=== PATIENT | female | born 1950 | race Two or more races ===

== ENCOUNTER 2025-01-22 14:16 | Inpatient (IN) | payer OTHER, MEDICARE, MEDICAID ==
[~2025-01-22] VITALS: Ht 154.9 cm; Wt 96.1 kg
--- NOTE | 2025-01-22 14:44 | ED.PDOC ---
History of Present Illness(SKN HPI Comments 74 y/o F, BIBA, with PMHx of DM presents to the ED for CC of wound check. EMS reports, patient is coming from home where she c/o left leg pain and pain to her lower lumbar region d/t a sacral wound. Patient reports associated symptoms of fatigue and abdominal pain. No other symptoms or modifying factors are present at this time. Chief Complaint: Wound Check Time Seen by MD: 14:00 History of Present Illness: Nurses Notes, Clinical Biochemical Geneticist Notes, Medications, Allergies Allergies: Coded Allergies: Morphine (Verified Allergy, Unknown, 01/22/25) Information Source: Patient, Emergency Med Personnel Mode of Arrival: EMS Severity: Moderate Timing: Days Duration: Since onset Prehospital treatment: None Location: Back Mechanism: Spontaneous Onset Object: None Condition of Object: None Retained Foreign Body: No Wound Type: Other (Sacral decubitus ulcer) History of: None Associated Signs and Symptoms: None Past Medical History PAST MEDICAL HISTORY: DM Surgical History: Denies all surgeries DESIGN LEAD History: Denies all DESIGN LEAD Hx Family History Family History: Unknown Social History Smoker: Non-Smoker Alcohol: Denies ETOH Use Drugs: Denies Drug Use Lives In: Home Constitutional: reports: fatigue; denies: chills, diaphoresis, fever, malaise, sweats, weakness, others EENTM: denies: blurred vision, double vision, ear bleeding, ear discharge, ear drainage, ear pain, ear ringing, eye pain, eye redness, hearing loss, mouth pa in, mouth swelling, nasal discharge, nose bleeding, nose congestion, nose pain, photophobia, tearing, throat pain, throat swelling, voice changes, others Respiratory: denies: cough, hemoptysis, orthopnea, SOB at rest, shortness of breath, SOB with excertion, stridor, wheezing, others Cardiovascular: denies: chest pain, dizzy spells, diaphoresis, Dyspnea on exertion, edema, irregular heart beat, left arm pain, lightheadedness, palpitations, PND, syncope, others Gastrointestinal: reports: abdominal pain; denies: abdomen distended, blood streaked bowels, constipated, diarrhea, dysphagia, difficulty swallowing, hematemesis, melena, nausea, poor appetite, poor fluid intake, rectal bleeding, rectal pain, vomiting, others Genitourinary: denies: abnormal vagina bleeding, burning, dyspareunia, dysuria, flank pain, frequency, hematuria, incontinence, pain, , vagina discharge, urgency, others Neurological: denies: dizziness, fainting, headache, left sided numbness, left sided weakness, numbness, paresthesia, pre-existing deficit, right sided numbness, right sided weakness, seizure, speech problems, tingling, tremors, weakness, others Musculoskeletal: reports: others (Pain to tailbone); denies: back pain, gout, joint pain, joint swelling, muscle pain, muscle stiffness, neck pain Integumetry: denies: bruises, change in color, change in hair/nails, dryness, laceration, lesions, lumps, rash, wounds, others Allergic/Immunocompromised: denies: Difficulty Healing, Frequent Infections, Hives, Itching, others Hematologic/Lymphatic: denies: anemia, blood clots, easy bleeding, easy bruising, swollen glands, others Endocrine: denies: excessive hunger, excessive sweating, excessive thirst, excessive urination, flushing, intolerance to cold, intolerance to heat, unexplained weight gain, unexplained weight loss, others Psychiatric: denies: anxiety, bipolar disorder, depression, hopeless, panic disorder, schizophrenia, sleepless, suicidal, others All Other Systems: Reviewed and Negative Physical Exam General Appearance: No Apparent Distress, Normal, Other (Right lower leg am putation, left foot amputation) HEENT: Normal ENT Inspection, Pharynx Normal Neck: Full Range of Motion, Non-Tender, Normal, Normal Inspection Respiratory: Chest Non-Tender, Lungs Clear, No Accessory Muscle Use, No Respiratory Distress, Normal Breath Sounds Cardiovascular: No Edema, No Murmur, No Gallop, Normal Peripheral Pulses, Regular Rate/Rhythm Breast Exam: Deferred Gastrointestinal: No Organomegaly, Non Tender, No Pulsatile Mass, Normal Bowel Sounds, Soft Genitalia: Deferred Pelvic: Deferred Rectal: Deferred Extremities: No calf tenderness, Normal capillary refill, Normal inspection, Normal range of motion, Non-tender, No pedal edema Musculoskeletal : Apperance: Normal Neurologic: Alert, toddler teacher II-XII nml as Tested, No Motor Deficits, Normal Affect, Normal Mood, No Sensory Deficits Cerebellar Function: Normal Reflexes: Normal Skin: Wounds (sacral decubitus ulcer) Lymphatic: No Adenopathy Was a procedure done? Was a procedure done?: No Differential Diagnosis (INTG) Differential Diagnosis: Cellulitis, Contact Dermatitis, Other (sacral wound, sacral pressure ulcers, incontinence associated dermatitis) X-Ray, Labs, Meds, VS Vital Signs Date Time Temp Pulse Resp B/P (MAP) Pulse Ox O2 Delivery O2 Flow Rate FiO2 01/22/25 15:08 106 20 125/109 01/22/25 14:20 97.7 97 16 123/41 96 97.7 Lab Test 01/22/25 15:30 01/22/25 14:45 Range/Units POC Glucose 177 H 70-106 mg/dl White Blood Count 24.8 H 4.4-10.8 10^3/uL Red Blood Count 2.76 L 4.0-5.20 10^6/uL Hemoglobin 6.9 *L 12.2-16.2 g/dL Hematocrit 23.7 L 36.0-46.0 % Mean Corpuscular Volume 85.9 80.0-100.0 fL Mean Corpuscular Hemoglobin 24.9 L 28.0-32.0 pg Mean Corpuscular Hemoglobin Concent 29.0 L 32.0-36.0 g/dL Red Cell Distribution Width 28.5 H 11.8-14.3 % Platelet Count 471 H 140-450 10^3/uL Mean Platelet Volume 7.1 6.9-10.8 fL Neutrophils (%) (Auto) 86.0 H 37.0-80.0 % Lymphocytes (%) (Auto) 7.5 L 10.0-50.0 % Monocytes (%) (Auto) 5.1 0.0-12.0 % Eosinophils (%) (Auto) 0.4 0.0-7.0 % Basophils (%) (Auto) 1.0 0.0-2.0 % Neutrophils # (Auto) 21.3 H 1.6-8.6 10 ^3/uL Lymphocytes # (Auto) 1.9 0.4-5.4 10 ^3/uL Monocytes # (Auto) 1.3 0-1.3 10 ^3/uL Eosinophils # (Auto) 0.1 0-0.8 10 ^3/uL Basophils # (Auto) 0.2 0-0.2 10 ^3/uL Nucleated Red Blood Cells 0.0 % Platelet Estimate Pending Sodium Level 139 136-145 mmol/L Potassium Level 5.2 H 3.5-5.1 mmol/L Chloride Level 109 H 98-107 mmol/L Carbon Dioxide Level 22 20-31 mmol/L Anion Gap 8 5-15 Blood Urea Nitrogen 19 9-23 mg/dL Creatinine 0.83 0.550-1.02 mg/dL Glomerular Filtration Rate Calc 73 >90 mL/min BUN/Creatinine Ratio 22.9 H 10.0-20.0 Serum Glucose 209 H 74-106 mg/dL Lactic Acid Level 2.5 *H 0.4-2.0 mmol/L Calcium Level 8.0 L 8.7-10.4 mg/dL Troponin I High Sensitivity 16 </=34 ng/L B-Type Natriuretic Peptide 134.96 0-100 pg/mL Current Medications Medications (Trade) Dose Ordered Sig/Xu Route Start Time Stop Time Status Last Admin Hydromorphone HCl (Dilaudid Injection) 1 mg ONCE ONCE IV 01/22/25 14:30 01/22/25 14:31 DC 01/22/25 15:08 Ondansetron HCl (Zofran) 4 mg ONCE ONCE IV 01/22/25 14:30 01/22/25 14:31 DC 01/22/25 15:08 [place] [address] Ph: [phone] DIAGNOSTIC IMAGING Diagnostic Imaging Report : [id number] Signed PATIENT: LAURA RASHID ACCT: [id number] UNIT: [id number] : 1950 LOC: ER ROOM / BED: / AGE / SEX: 74 / F ADM STATUS: REG ER SERVICE 1424 ORDERING PHYSICIAN: MARIN BURCH MD PROCEDURE(s): CXRP - CHEST PORTABLE REASON: pain ORDER NUMBER(s): [id number], ACCESSION NUMBER(s): [id number] CHEST RADIOGRAPH Indication: pain Technique: XY CHEST PORTABLE Comparison: None FINDINGS: The cardiac silhouette is unremarkable. The lungs demonstrate no pulmonary airspace consolidation. Bilateral atelectasis/scarring The pulmonary vasculature is unremarkable. There is no pleural effusion. There is no pneumothorax. Aortic atherosclerotic disease. Old posterior left 6th rib fracture. IMPRESSION: As above ATED BY: JUNIE JOE MD DICTATED DATE/TIME: 01/22/251455 SIGNED BY: JUNIE JOE MD SIGNED DATE/TIME: 01/22/251455 CC: Time of 1ST Reevaluation: 14:30 Reevaluation 1ST: Unchanged Patient Education/Counseling: Diagnosis, Treatment Family Education/Counseling: No Family Present SEPSIS Sepsis Screen Date sepsis recognized/suspect: Jan 22, 2025 Time Sepsis recognized/suspect: 1419 Recent Procedure: No On Antibiotic Therapy: No Respiratory Rate >20: No Heart Rate >90: Yes Temp<36 C (96.8 F) or >38.3 C: No SBP <90 or MAP <65 mmHG: No New Acute Mental Status Change: No Is the patient on CPAP, BIPAP,: No Physician Orders Complete Blood Count (01/22/25 14:24) Urinalysis (01/22/25 14:24) Chest Portable (01/22/25 14:24) Blood Culture (01/22/25 14:24) Troponin-I Hs (01/22/25 15:24) Troponin-I Hs (01/22/25 17:24) Rbc Morphology (01/22/25 14:45) Packedcell-Noactive Bleeding (01/22/25 15:30) Type And Screen (01/22/25 15:30) Vancomycin (01/22/25 16:00) Vital Signs Date Time Temp Pulse Resp B/P (MAP) Pulse Ox O2 Delivery O2 Flow Rate FiO2 01/22/25 15:08 106 20 125/109 01/22/25 14:20 97.7 97 16 123/41 96 97.7 Laboratory Tests Test 01/22/25 14:45 Lactic Acid Level 2.5 mmol/L (0.4-2.0) *H White Blood Count 24.8 10^3/uL (4.4-10.8) H Medications Medications Dose Ordered Sig/Xu Route Start Time Stop Time Status Last Admin Dose Admin Hydromorphone HCl 1 mg ONCE ONCE IV 01/22/25 14:30 01/22/25 14:31 DC 01/22/25 15:08 Ondansetron HCl 4 mg ONCE ONCE IV 01/22/25 14:30 01/22/25 14:31 DC 01/22/25 15:08 Departure 1 Departure Time of Disposition: 15:49 (Patient with symptomatic anemia and cellulitis. We will transfuse patient admit patient for antibiotics further workup) Impression: Primary Impression: Symptomatic anemia Additional Impressions: Cellulitis Qualified Codes: L03.90 - Cellulitis, unspecified Generalized weakness Disposition: 09 ADMITTED INPATIENT Admit to: Med Surg Condition: Serious Critical Care Note Critical Care Time?: Yes Critical care comment: Symptomatic Anemia Authorized and Performed by: Marin Burch MD Total critical care time: Approximately 38 minutes Due to a high probability of clinically significant, life threatening deterioration, the patient required my highest level of preparedness to intervene emergently and I personally spent this critical care time directly and personally managing the patient. This critical care time included obtaining a history; examining the patient; pulse oximetry; ordering and review of studies; arranging urgent treatment with development of a management plan; evaluation of patient's response to treatment; frequent reassessment; and, discussions with other providers. This critical care time was performed to assess and manage the high probability of imminent, life-threatening deterioration that could result in multi-organ failure. It was exclusive of separately billable procedures and treating other patients and teaching time. Please see my other sections and the rest of the note for further information on patient assessment and treatment. Stability Stability form required: No Heart Score Heart Score: Heart Score Response (Comments) Value History N/A 0 EKG N/A 0 Age N/A 0 Risk Factors N/A 0 Troponin N/A 0 Total 0 I personally scribed for MARIN BURCH MD ([email or web address]) on 01/22/25 at 14:44. Electronically submitted by Genna Rubio ([email or web address]). I personally scribed for MARIN BURCH MD ([email or web address]) on 01/22/25 at 14:48. Electronically submitted by Genna Rubio ([email or web address]). I personally scribed for MARIN BURCH MD ([email or web address]) on 01/22/25 at 15:21. Electronically submitted by Genna Rubio ([email or web address]). MARIN BURCH MD Jan 22, 2025 14:44
[2025-01-22 14:56] LABS: Nucleated Red Blood Cells % 0.0 %
--- NOTE | 2025-01-22 14:56 | DVH ---
CHEST RADIOGRAPH Indication: pain Technique: XY CHEST PORTABLE Comparison: None FINDINGS: The cardiac silhouette is unremarkable. The lungs demonstrate no pulmonary airspace consolidation. Bi lateral atelectasis/scarring The pulmonary vasculature is unremarkable. There is no pleural effusion. There is no pneumothorax. Aortic atherosclerotic disease. Old posterior left 6th rib fracture. IMPRESSION: As above
[2025-01-22 14:58] LABS: Hematocrit 23.7 % (36.0-46.0); Mean Corpuscular Hemoglobin 24.9 pg (28.0-32.0); Mean Corpuscular Volume 85.9 fL (80.0-100.0)
[2025-01-22 15:03] LABS: Sodium 139 mmol/L (136-145)
[2025-01-22 15:04] LABS: Anion Gap 8 (5-15); Carbon Dioxide 22 mmol/L (20-31)
[2025-01-22 15:07] LABS: Hemoglobin 6.9 g/dL (12.2-16.2)
[2025-01-22] MEDS: ONDANSETRON HCL 4 MG/2 ML VIAL IV ONE (15:08)
[2025-01-22] MEDS: HYDROmorphone HCL 2 MG/ML VL/or syr IV ONE (15:08)
[2025-01-22 15:09] LABS: BUN/Creatinine Ratio 22.9 (10.0-20.0); Blood Urea Nitrogen 19 mg/dL (9-23)
[2025-01-22 15:16] LABS: Calcium 8.0 mg/dL (8.7-10.4); Chloride 109 mmol/L (98-107); Glucose 209 mg/dL (74-106); Potassium 5.2 mmol/L (3.5-5.1)
[2025-01-22 15:44] LABS: Lactic Acid w/Reflex 2.5 mmol/L (0.4-2.0)
[2025-01-22 16:23] VITALS: PULSE 100; RESP 17; O2SAT 99
[2025-01-22 16:30] LABS: Anisocytosis Moderate
[2025-01-22] MEDS: SODIUM CHLORIDE 0.9% 1,000 ML IV ONE ×2 (17:24→18:38)
[2025-01-22] MEDS: VANCOMYCIN 1GM/250ML KIT 250 ML IV ONE (17:24)
[2025-01-22] MEDS: CALCIUM GLUC 1,000mg/50ml-NS 50 ML IV SCH (17:24)
[2025-01-22] MEDS ORDERED: VANCOMYCIN PER PHARMACY 0 MG IV SCH (18:00)
[2025-01-22] MEDS ORDERED: DEXTROSE (50%) 50ML SYRG IV PRN (18:00)
[2025-01-22] MEDS ORDERED: ONDANSETRON HCL 4 MG/2 ML VIAL IV PRN (18:00)
--- NOTE | 2025-01-22 18:06 | DVHHP2 ---
History of Present Illness Reason for Visit: Multiple wounds History of Present Illness 74-year-old female presents for evaluation of multiple wounds. Patient currently on hospice was seen by the nurse and advised to present for evaluation of sacral decubitus ulcer and left lower extremity wounds. Patient is bed ridden. Past Medical History Hypertension, diabetes mellitus,? Dementia Past Surgical History Unknown Family History Noncontributory Smoke: No ALCOHOL: none Drugs: None Review of Systems Review of Systems Review of systems are limited due to the patient's altered mental status. Allergies: Coded Allergies: Morphine (Verified Allergy, Unknown, 01/22/25) Exam Vital Signs Vital Signs Date Time Temp Pulse Resp B/P (MAP) Pulse Ox O2 Delivery O2 Flow Rate FiO2 01/22/25 16:32 98 Nasal Cannula* 2 28 01/22/25 16:23 100 17 01/22/25 16:00 97/37 (57) 01/22/25 15:47 98.0 98.0 Exam Gen: 74-year-old female in mild distress, morbidly obese Skin: Warm, dry, normal color and texture, sacral decubitus ulcer HEENT: Normocephalic atraumatic, mucous membranes moist and pink. Neck: Cervical and supraclavicular nodes normal without enlargement, trachea is midline, thyroid gland is normal without masses. Pulmonary: Clear to auscultation and percussion bilaterally. Cardiac: Regular rate and rhythm. No murmur Abdomen: Soft, nontender, nondistended, bowel sounds present all 4 quadrants, no guarding, no rigidity, no organomegaly. Extremities: No cyanosis, clubbing, left lower extremity with multiple wounds Neuro: Cranial nerves II through XII grossly intact, normal affect and speech, no focal motor deficits. Labs/Xrays ORDERING PHYSICIAN: MARIN HOPKINS MD PROCEDURE(s): CXRP - CHEST PORTABLE REASON: pain ORDER NUMBER(s): [id number], ACCESSION NUMBER(s): [id number] CHEST RADIOGRAPH Indication: pain Technique: XY CHEST PORTABLE Comparison: None FINDINGS: The cardiac silhouette is unremarkable. The lungs demonstrate no pulmonary airspace consolidation. Bilateral atelectasis/scarring The pulmonary vasculature is unremarkable. There is no pleural effusion. There is no pneumothorax. Aortic atherosclerotic disease. Old posterior left 6th rib fracture. IMPRESSION: As above Labs Test 01/22/25 17:21 01/22/25 15:30 01/22/25 14:45 Range/Units Lactic Acid Level 1.5 0.4-2.0 mmol/L Troponin I High Sensitivity 18 </=34 ng/L POC Glucose 177 H 70-106 mg/dl White Blood Count 24.8 H 4.4-10.8 10^3/uL Red Blood Count 2.76 L 4.0-5.20 10^6/uL Hemoglobin 6.9 *L 12.2-16.2 g/dL Hematocrit 23.7 L 36.0-46.0 % Mean Corpuscular Volume 85.9 80.0-100.0 fL Mean Corpuscular Hemoglobin 24.9 L 28.0-32.0 pg Mean Corpuscular Hemoglobin Concent 29.0 L 32.0-36.0 g/dL Red Cell Distribution Width 28.5 H 11.8-14.3 % Platelet Count 471 H 140-450 10^3/uL Mean Platelet Volume 7.1 6.9-10.8 fL Neutrophils (%) (Auto) 86.0 H 37.0-80.0 % Lymphocytes (%) (Auto) 7.5 L 10.0-50.0 % Monocytes (%) (Auto) 5.1 0.0-12.0 % Eosinophils (%) (Auto) 0.4 0.0-7.0 % Basophils (%) (Auto) 1.0 0.0-2.0 % Neutrophils # (Auto) 21.3 H 1.6-8.6 10 ^3/uL Lymphocytes # (Auto) 1.9 0.4-5.4 10 ^3/uL Monocytes # (Auto) 1.3 0-1.3 10 ^3/uL Eosinophils # (Auto) 0.1 0-0.8 10 ^3/uL Basophils # (Auto) 0.2 0-0.2 10 ^3/uL Nucleated Red Blood Cells 0.0 % Platelet Estimate Increased Hypochromasia (manual) Moderate Anisocytosis (manual) Moderate Bobby Cells Few Sodium Level 139 136-145 mmol/L Potassium Level 5.2 H 3.5-5.1 mmol/L Chloride Level 109 H 98-107 mmol/L Carbon Dioxide Level 22 20-31 mmol/L Anion Gap 8 5-15 Blood Urea Nitrogen 19 9-23 mg/dL Creatinine 0.83 0.550-1.02 mg/dL Glomerular Filtration Rate Calc 73 >90 mL/min BUN/Creatinine Ratio 22.9 H 10.0-20.0 Serum Glucose 209 H 74-106 mg/dL Calcium Level 8.0 L 8.7-10.4 mg/dL B-Type Natriuretic Peptide 134.96 0-100 pg/mL SEPSIS Sepsis Screen Date sepsis recognized/suspect: Jan 22, 2025 Time Sepsis recognized/suspect: 1628 Recent Procedure: No On Antibiotic Therapy: No Respiratory Rate >20: No Heart Rate >90: No Temp<36 C (96.8 F) or >38.3 C: No SBP <90 or MAP <65 mmHG: No New Acute Mental Status Change: No Is the patient on CPAP, BIPAP,: No Physician Orders Urinalysis (01/22/25 14:24) Chest Portable (01/22/25 14:24) Blood Culture (01/22/25 14:24) Type And Screen (01/22/25 15:30) Ct Ab Pel With Iv Con Only (01/22/25 17:19) Sodium Chloride 0.9% (01/22/25 17:30) Vital Signs Date Time Temp Pulse Resp B/P (MAP) Pulse Ox O2 Delivery O2 Flow Rate FiO2 01/22/25 16:32 98 Nasal Cannula* 2 01/22/25 16:23 100 17 99 Nasal Cannula* 2 01/22/25 16:00 100 19 97/37 (57) 99 01/22/25 15:47 98.0 104 19 125/93 (104) 99 98.0 01/22/25 15:38 100 16 97/37 01/22/25 15:08 106 20 125/109 01/22/25 14:20 97.7 97 16 123/41 96 97.7 Laboratory Tests Test 01/22/25 14:45 01/22/25 17:21 Lactic Acid Level 2.5 mmol/L (0.4-2.0) *H 1.5 mmol/L (0.4-2.0) White Blood Count 24.8 10^3/uL (4.4-10.8) H Medications Medications Dose Ordered Sig/Xu Route Start Time Stop Time Status Last Admin Dose Admin Calcium Gluconate/ Sodium Chloride 50 ml @ 100 mls/hr Q30M IV 01/22/25 16:00 01/22/25 16:59 DC 01/22/25 17:25 100 MLS/HR Hydromorphone HCl 1 mg ONCE ONCE IV 01/22/25 14:30 01/22/25 14:31 DC 01/22/25 15:08 1 MG Ondansetron HCl 4 mg ONCE ONCE IV 01/22/25 14:30 01/22/25 14:31 DC 01/22/25 15:08 4 MG Sodium Chloride 1,000 ml @ 1,000 mls/hr Q1H ONCE IV 01/22/25 16:00 01/22/25 16:59 DC 01/22/25 17:24 1,000 MLS/HR Vancomycin HCl 250 ml @ 250 mls/hr ONCE ONCE IV 01/22/25 16:00 01/22/25 16:59 DC 01/22/25 17:24 250 MLS/HR Assessment/Plan Assessment/Plan Assessment Infected sacral decubitus ulcer Possible metabolic encephalopathy Diabetes mellitus Leukocytosis Early sepsis Plan Admit the patient to [facility] to the hospitalist Wound consult Wound culture pending CT abdomen and pelvis pending Cefepime/vancomycin Resume home medications Continue treatment per orders. Plan discussed with: Patient Date of Service: Jan 22, 2025 Billing Provider: FERMIN LIU Common Visit Codes: [id number] INP/OBS CARE (HIGH) FERMIN LIU Jan 22, 2025 18:06
[2025-01-22] MEDS: FERROUS SULFATE 325mg EC TAB PO SCH (18:38)
[2025-01-22 19:08] LABS: Iron 15.0 ug/dL (50-170); Total Iron Binding Capacity 110.0 ug/dL (250-425)
--- NOTE | 2025-01-22 21:32 | DVH ---
EXAM: CT CT AB PEL WITH IV CON ONLY HISTORY: adbominal pain, c/f osteo in the pelvis TECHNIQUE: Volumetric multidetector CT images of the abdomen and pelvis were obtained after the admin istration of intravenous contrast. All CT scans at this facility use dose modulation, iterative recon struction, and/or weight based dosing when appropriate to reduce radiation dose to as low as reasonab ly achievable. COMPARISON: None FINDINGS: [LOWER CHEST]: Small bilateral pleural effusions with atelectasis in bilateral lung bases. Coronary a rtery calcifications. [LIVER]: Hepatomegaly [GALLBLADDER AND BILIARY TREE]: Surgically absent. [SPLEEN]: Hypoattenuating oval-shaped lesion measuring 2.8 cm in the left medial spleen. [PANCREAS]: Fatty atrophy, which may be seen in the setting of underlying metabolic derangement such as diabetes. [ADRENAL GLANDS]: Unremarkable [KIDNEYS]: No hydronephrosis. No nephroureterolithiasis. No suspicious focal lesion. [BLADDER]: Dominguez catheter in place. [REPRODUCTIVE ORGANS]: Calcified fibroid [BOWEL/MESENTERY]: Stomach is normal. Jsec-[id number]-wpvgwyiy stool burden. Normal appendix. [ASCITES]: Absent [LYMPHADENOPATHY]: No pathologically enlarged lymph nodes by CT size criteria [VASCULATURE]: No aneurysmal dilatation. [ABDOMINAL WALL]: [id number] diffuse anasarca. Prior midline incision. [MUSCULOSKELETAL]: Multifocal degenerative change of the visualized spine. 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 No visualized pathologic fracture. Status post prior distal resection of the lower sacrum/coccyx. Superior endplate height loss with Schmorl's node and near central vertebral plana of L4 and L5. No visualized retropulsion. Diffusely decreased bone mineral density. Severe degenerative change hips. Large sacral decubitus ulcer overlying the pos terior aspect of the residual sacrum without abnormal osseous erosion or periosteal edema. Correlate with clinical exam to exclude osteomyelitis. IMPRESSION: 1. Large sacral decubitus ulcer overlying the posterior aspect of the residual sacrum without abnorma l osseous erosion or periosteal edema. Correlate with clinical exam to exclude osteomyelitis. 2. 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 No visualized pa thologic fracture. 3. Mild anasarca with trace bilateral pleural effusions. Correlate for volume overload.
[2025-01-22] MEDS: IOHEXOL 300 MG/ML 100ML BOTTLE IJ ONE (22:03)
[2025-01-22] MEDS: GABAPENTIN 300 MG CAP PO SCH (22:16)
[2025-01-22] MEDS: CEFEPIME 1GM/50ML 50 ML IV ONE (22:16)
[2025-01-22] MEDS: ALBUMIN 5% 250 ML IV ONE (22:16)
[2025-01-22] MEDS: ACCU-CHEK COMFORT CURVE STRIP VI SCH (22:17)
[2025-01-22] MEDS: HYDROcodone-ACET 5/325MG TAB PO PRN (22:17)
[2025-01-22] MEDS: InsuLIN REG 1unit/0.01ml Soln (100units/ml) SC SCH (22:45)
[2025-01-22 23:35] VITALS: BP 106/31; PULSE 85; RESP 18; TEMP 98.3
[2025-01-23] VITALS (14 sets, daily range): BP systolic 99–151; BP diastolic 29–74; PULSE 72–96; RESP 12–18; TEMP 97–98.6; O2SAT 96–100
[2025-01-23 05:04] LABS: Anion Gap 7 (5-15); Carbon Dioxide 23 mmol/L (20-31); Potassium 4.4 mmol/L (3.5-5.1); Sodium 141 mmol/L (136-145)
[2025-01-23 05:05] LABS: Nucleated Red Blood Cells % 0.0 %
[2025-01-23 05:06] LABS: Hematocrit 21.8 % (36.0-46.0); Mean Corpuscular Hemoglobin 25.4 pg (28.0-32.0); Mean Corpuscular Volume 84.2 fL (80.0-100.0)
[2025-01-23 05:10] LABS: BUN/Creatinine Ratio 19.7 (10.0-20.0); Blood Urea Nitrogen 15 mg/dL (9-23)
[2025-01-23 05:12] LABS: Hemoglobin 6.6 g/dL (12.2-16.2)
[2025-01-23 05:20] LABS: Calcium 7.8 mg/dL (8.7-10.4); Chloride 111 mmol/L (98-107); Glucose 124 mg/dL (74-106)
[2025-01-23] MEDS: VANCOMYCIN 1GM/250ML KIT 250 ML IV SCH (06:26)
[2025-01-23 08:30] LABS: Urine Protein, UAD TRACE (Negative)
--- NOTE | 2025-01-23 13:00 | DVHPN2 ---
Reviewed: Care Plan, H&P, Labs, Medications, Previous Orders, Radiology Changes from previous H/P or p: No Changes Objective Vitals Vital Signs Date Time Temp Pulse Resp B/P (MAP) Pulse Ox O2 Delivery O2 Flow Rate FiO2 01/23/25 12:40 83 14 141/42 (75) 100 01/23/25 11:00 98.1 98.1 01/22/25 16:32 Nasal Cannula* 2 28 Intake/Output Intake and Output 01/23/25 07:00 Intake Total 2600 ml Output Total 300 ml Balance 2300 ml IV Total 2300 ml Blood Product 300 ml Output Urine Total 300 ml Medications Current Medications Medications Dose Ordered Sig/Xu Route Start Time Stop Time Status Last Admin Dose Admin Cefepime HCl 50 ml @ 12.5 mls/hr Q12HR IV 01/23/25 10:00 Vancomycin HCl 0 ml @ 0 mls/hr UD IV 01/22/25 18:00 Ferrous Sulfate 325 mg BIDWM PO 01/22/25 18:00 01/23/25 09:57 325 MG Gabapentin 600 mg TID PO 01/22/25 22:00 01/23/25 06:25 600 MG Diagnostic Test (Pha) 1 strip ACHS 01/22/25 22:00 01/23/25 12:24 1 STRIP Insulin Human Regular ACHS SC 01/22/25 22:00 01/22/25 22:45 3 UNITS Dextrose 50 ml UD PRN IV 01/22/25 18:00 Acetaminophen/ Hydrocodone Bitart 1 tab Q4HP PRN PO 01/22/25 18:00 01/23/25 10:00 1 TAB Ondansetron HCl 4 mg Q4HP PRN IV 01/22/25 18:00 Acetaminophen 650 mg Q6HP PRN PO 01/22/25 18:00 Vancomycin HCl 250 ml @ 200 mls/hr Q12H IV 01/23/25 06:00 01/23/25 06:26 200 MLS/HR Laboratory Results Laboratory Tests 01/23/25 04:16 Chemistry Test 01/22/25 14:45 01/23/25 04:16 Calcium Level 8.0 mg/dL (8.7-10.4) L 7.8 mg/dL (8.7-10.4) L Cardiac Markers Test 01/22/25 14:45 B-Type Natriuretic Peptide 134.96 pg/mL (0-100) Urinalysis Test 01/22/25 07:30 Urine Color Light-yellow (Yellow) Urine Clarity Clear (Clear) Urine pH 5.5 (5.0-9.0) Urine Specific [place] 1.046 (1.001-1.035) Urine Protein Trace (Negative) H Urine Ketones Negative (Negative) Urine Blood 2+ /uL (Negative) H Urine Nitrite Negative (Negative) Urine Bilirubin Negative (Negative) Urine Urobilinogen Normal mg/dL (Negative) Urine Leukocyte Esterase Negative /uL (Negative) Urine RBC 13 /hpf (0 - 4) Urine Microscopic WBC 11 /HPF (0-5) H Urine Squamous Epithelial Cells Few /hpf (<5) Urine Bacteria None seen /hpf (None Seen) Urine Glucose Normal mg/dL (Normal) Microbiology Microbiology Date/Time Source Procedure Growth Status 01/22/25 14:45 Blood Blood Culture - Preliminary Resulted Labs and/or images reviewed: Labs reviewed by me, Image(s) reviewed by me Assessment/Plan Assessment/Plan Septic shock secondary to infected decubitus wounds Acute metabolic encephalopathy Acute dehydration Infected sacral decubitus ulcer and left leg wounds: Wound consult blood cultures wound cultures, cefepime and vancomycin UTI: Blood cultures urine cultures continue cefepime until culture results Acute severe anemia hemoglobin 6.9: Transfuse 1 unit of RBC Hypertension Diabetes type 2 Severe dementia Patient is hospice revoked Time spent 70 minutes Advanced care planning time 20 minutes Patient is full code Plan discussed with: Patient My Orders Orders - KRYSTAL COBOS MD Procedure Category Date Status Time Urine Bacterial DANELLE 01/23/25 Verified Culture 12:56 Communication Order ORDERS 01/23/25 Verified 12:56 Date of Service: Jan 23, 2025 Billing Provider: KRYSTAL COBOS MD Common Visit Codes: [id number] CARE 30-74 MIN KRYSTAL COBOS MD Jan 23, 2025 13:00
[2025-01-23] MEDS: CEFEPIME 1GM/50ML 50 ML IV SCH (14:11)
[2025-01-23] MEDS ORDERED: LORA5SYP23 PO (17:10)
[2025-01-23] MEDS ORDERED: HYDR-4072 PO (17:10)
[2025-01-23] MEDS ORDERED: HYDR2TAB58 PO (17:10)
[2025-01-23] MEDS ORDERED: TRAZ-227 PO (17:10)
[2025-01-23] MEDS ORDERED: LORA-1120 PO (17:10)
[2025-01-23] MEDS ORDERED: GABA-339 PO (17:10)
[2025-01-23] MEDS: ACETAMINOPHEN 325 MG TAB PO PRN (21:53)
[2025-01-23] MEDS: NYSTATIN TOPICAL POWDER 15GM TOP SCH (22:00)
[2025-01-24] VITALS (8 sets, daily range): BP systolic 107–138; BP diastolic 45–64; PULSE 74–90; RESP 14–18; TEMP 96–98.5; O2SAT 100
[2025-01-24 06:54] LABS: Hematocrit 29.8 % (36.0-46.0); Hemoglobin 9.3 g/dL (12.2-16.2); Mean Corpuscular Hemoglobin 27.0 pg (28.0-32.0); Mean Corpuscular Volume 87.1 fL (80.0-100.0); Nucleated Red Blood Cells % 0.1 %
--- NOTE | 2025-01-24 08:33 | DVHPN2 ---
Reviewed: Care Plan, H&P, Labs, Medications, Previous Orders, Radiology Changes from previous H/P or p: No Changes Objective Vitals Vital Signs Date Time Temp Pulse Resp B/P (MAP) Pulse Ox O2 Delivery O2 Flow Rate FiO2 01/24/25 05:00 96.8 74 17 107/45 (65) 100 96.8 01/23/25 20:00 Nasal Cannula* 2 28 Intake/Output Intake and Output 01/24/25 07:00 Intake Total 2120 ml Output Total 1550 ml Balance 570 ml Intake Oral 1170 ml IV Total 50 ml Blood Product 900 ml Output Urine Total 1550 ml Medications Current Medications Medications Dose Ordered Sig/Xu Route Start Time Stop Time Status Last Admin Dose Admin Cefepime HCl 50 ml @ 12.5 mls/hr Q12HR IV 01/23/25 10:00 01/23/25 21:46 12.5 MLS/HR Vancomycin HCl 0 ml @ 0 mls/hr UD IV 01/22/25 18:00 Ferrous Sulfate 325 mg BIDWM PO 01/22/25 18:00 01/23/25 17:48 325 MG Gabapentin 600 mg TID PO 01/22/25 22:00 01/24/25 07:00 600 MG Diagnostic Test (Pha) 1 strip ACHS 01/22/25 22:00 01/24/25 06:59 1 STRIP Insulin Human Regular ACHS SC 01/22/25 22:00 01/23/25 21:48 6 UNITS Dextrose 50 ml UD PRN IV 01/22/25 18:00 Acetaminophen/ Hydrocodone Bitart 1 tab Q4HP PRN PO 01/22/25 18:00 01/24/25 04:12 1 TAB Ondansetron HCl 4 mg Q4HP PRN IV 01/22/25 18:00 Acetaminophen 650 mg Q6HP PRN PO 01/22/25 18:00 01/23/25 21:53 650 MG Vancomycin HCl 250 ml @ 200 mls/hr Q12H IV 01/23/25 06:00 01/24/25 07:00 200 MLS/HR Nystatin 1 applic BID TOP 01/23/25 22:00 Laboratory Results Laboratory Tests 01/23/25 04:16 01/24/25 05:48 Urinalysis Test 01/22/25 07:30 Urine Color Light-yellow (Yellow) Urine Clarity Clear (Clear) Urine pH 5.5 (5.0-9.0) Urine Specific [place] 1.046 (1.001-1.035) Urine Protein Trace (Negative) H Urine Ketones Negative (Negative) Urine Blood 2+ /uL (Negative) H Urine Nitrite Negative (Negative) Urine Bilirubin Negative (Negative) Urine Urobilinogen Normal mg/dL (Negative) Urine Leukocyte Esterase Negative /uL (Negative) Urine RBC 13 /hpf (0 - 4) Urine Microscopic WBC 11 /HPF (0-5) H Urine Squamous Epithelial Cells Few /hpf (<5) Urine Bacteria None seen /hpf (None Seen) Urine Glucose Normal mg/dL (Normal) Microbiology Microbiology Date/Time Source Procedure Growth Status 01/22/25 14:45 Blood Blood Culture - Preliminary Resulted Labs and/or images reviewed: Labs reviewed by me, Image(s) reviewed by me Assessment/Plan Assessment/Plan Septic shock secondary to infected stage 4 sacral decubitus ulcer Acute metabolic encephalopathy Acute dehydration Infected stage IV sacral decubitus ulcer and left leg wounds: Wound consult blood cultures, wound cultures pending, cefepime and vancomycin UTI: Blood cultures , urine cultures pending, continue cefepime until culture results Acute severe anemia hemoglobin 6.9: Transfuse 1 unit of RBC Hypertension Diabetes type 2 Severe dementia Patient is hospice revoked Time spent 70 minutes Advanced care planning time 20 minutes Patient is full code Plan discussed with: Patient My Orders Orders - KRYSTAL COBOS MD Procedure Category Date Status Time Urine Bacterial DANELLE 01/23/25 In Process Culture 12:56 Communication Order ORDERS 01/23/25 Transmitted 12:56 Order Specialty JOSE 01/23/25 In Process Mattress 15:14 Cleanse Wound With JOSE 01/23/25 In Process Wound Clean 15:52 Cover Wound With Foam JOSE 01/23/25 In Process Dressing 14:30 * Dietary Consult CONS 01/23/25 Transmitted 16:00 Nystatin Powder PHA 01/23/25 In Process (Mycostatin Powder) 22:00 Date of Service: Jan 24, 2025 Billing Provider: KRYSTAL COBOS MD Common Visit Codes: [id number] CARE 30-74 MIN KRYSTAL COBOS MD Jan 24, 2025 08:33
[2025-01-25] VITALS (9 sets, daily range): BP systolic 114–162; BP diastolic 61–81; PULSE 73–85; RESP 16–18; TEMP 97.3–98.6; O2SAT 1–100
[2025-01-25 07:08] LABS: Hematocrit 30.5 % (36.0-46.0); Hemoglobin 9.6 g/dL (12.2-16.2); Mean Corpuscular Hemoglobin 27.1 pg (28.0-32.0); Mean Corpuscular Volume 85.9 fL (80.0-100.0); Nucleated Red Blood Cells % 0.1 %
--- NOTE | 2025-01-25 09:54 | DVHPN2 ---
Reviewed: Care Plan, H&P, Labs, Medications, Previous Orders, Radiology Changes from previous H/P or p: No Changes Objective Vitals Vital Signs Date Time Temp Pulse Resp B/P (MAP) Pulse Ox O2 Delivery O2 Flow Rate FiO2 01/25/25 08:00 1 Nasal Cannula* 2 28 01/25/25 06:04 134/62 (86) 01/25/25 05:00 97.3 85 16 97.3 Intake/Output Intake and Output 01/25/25 07:00 Intake Total 675 ml Output Total 751 ml Balance -76 ml Intake Oral 75 ml IV Total 600 ml Output Urine Total 750 ml Stool Total 1 ml Medications Current Medications Medications Dose Ordered Sig/Xu Route Start Time Stop Time Status Last Admin Dose Admin Cefepime HCl 50 ml @ 12.5 mls/hr Q12HR IV 01/23/25 10:00 01/24/25 22:02 12.5 MLS/HR Vancomycin HCl 0 ml @ 0 mls/hr UD IV 01/22/25 18:00 Ferrous Sulfate 325 mg BIDWM PO 01/22/25 18:00 01/24/25 18:10 325 MG Gabapentin 600 mg TID PO 01/22/25 22:00 01/25/25 06:01 600 MG Diagnostic Test (Pha) 1 strip ACHS 01/22/25 22:00 01/25/25 06:02 1 STRIP Insulin Human Regular ACHS SC 01/22/25 22:00 01/25/25 06:20 2 UNITS Dextrose 50 ml UD PRN IV 01/22/25 18:00 Acetaminophen/ Hydrocodone Bitart 1 tab Q4HP PRN PO 01/22/25 18:00 01/25/25 04:11 1 TAB Ondansetron HCl 4 mg Q4HP PRN IV 01/22/25 18:00 Acetaminophen 650 mg Q6HP PRN PO 01/22/25 18:00 01/23/25 21:53 650 MG Vancomycin HCl 250 ml @ 200 mls/hr Q12H IV 01/23/25 06:00 01/25/25 06:01 200 MLS/HR Nystatin 1 applic BID TOP 01/23/25 22:00 01/24/25 22:03 1 APPLIC Laboratory Results Laboratory Tests 01/23/25 04:16 01/25/25 05:22 Urinalysis Test 01/22/25 07:30 Urine Color Light-yellow (Yellow) Urine Clarity Clear (Clear) Urine pH 5.5 (5.0-9.0) Urine Specific [place] 1.046 (1.001-1.035) Urine Protein Trace (Negative) H Urine Ketones Negative (Negative) Urine Blood 2+ /uL (Negative) H Urine Nitrite Negative (Negative) Urine Bilirubin Negative (Negative) Urine Urobilinogen Normal mg/dL (Negative) Urine Leukocyte Esterase Negative /uL (Negative) Urine RBC 13 /hpf (0 - 4) Urine Microscopic WBC 11 /HPF (0-5) H Urine Squamous Epithelial Cells Few /hpf (<5) Urine Bacteria None seen /hpf (None Seen) Urine Glucose Normal mg/dL (Normal) Microbiology Microbiology Date/Time Source Procedure Growth Status 01/23/25 15:10 Voided Urine Urine Culture - Preliminary Resulted 01/23/25 15:00 Sacrum Gram Stain - Final Resulted 01/23/25 15:00 Sacrum Wound Culture - Preliminary Resulted 01/22/25 14:45 Blood Blood Culture - Final Complete Labs and/or images reviewed: Labs reviewed by me, Image(s) reviewed by me Assessment/Plan Assessment/Plan Septic shock secondary to infected stage 4 sacral decubitus ulcer Acute metabolic encephalopathy Acute dehydration Infected stage IV sacral decubitus ulcer and left leg wounds: Wound consult blood cultures, wound cultures pending, cefepime and vancomycin UTI: Blood cultures negative , urine cultures pending, wound cultures growing Gram-negative rods continue cefepime Acute severe anemia hemoglobin 6.9: Transfuse 1 unit of RBC Hypertension Diabetes type 2 Severe dementia Patient is hospice revoked Time spent 70 minutes Advanced care planning time 20 minutes Patient is full code Spoke to daughter Marti [phone] was on hospice for COPD and CHF, daughter does not want to RN to be on hospice anymore and requesting halfway facility placement for IV antibiotics physical therapy and wound care. Plan discussed with: Patient My Orders Orders - KRYSTAL COBOS MD Procedure Category Date Status Time Dietary NOTICE 01/24/25 Transmitted Recommendations 12:27 Date of Service: Jan 25, 2025 Billing Provider: KRYSTAL COBOS MD Common Visit Codes: [id number] INP/OBS CARE(HIGH) KRYSTAL COBOS MD Jan 25, 2025 09:54
[2025-01-26 04:00] VITALS: BP 128/65; PULSE 80; RESP 18; TEMP 98.1; O2SAT 100
[2025-01-26 06:34] LABS: Hematocrit 30.4 % (36.0-46.0); Hemoglobin 9.6 g/dL (12.2-16.2); Mean Corpuscular Hemoglobin 27.1 pg (28.0-32.0); Mean Corpuscular Volume 85.5 fL (80.0-100.0); Nucleated Red Blood Cells % 0.1 %
[2025-01-26 09:13] VITALS: BP 110/52; PULSE 80; RESP 14; TEMP 98.4; O2SAT 96
--- NOTE | 2025-01-26 10:25 | DVHPN2 ---
Reviewed: Care Plan, H&P, Labs, Medications, Previous Orders, Radiology Changes from previous H/P or p: No Changes Objective Vitals Vital Signs Date Time Temp Pulse Resp B/P (MAP) Pulse Ox O2 Delivery O2 Flow Rate FiO2 01/26/25 09:13 98.4 80 14 110/52 (71) 96 98.4 01/26/25 08:00 Room Air* 0 21 Intake/Output Intake and Output 01/26/25 07:00 Intake Total 1650 ml Output Total 1800 ml Balance -150 ml Intake Oral 1350 ml IV Total 300 ml Output Urine Total 1800 ml Medications Current Medications Medications Dose Ordered Sig/Xu Route Start Time Stop Time Status Last Admin Dose Admin Ferrous Sulfate 325 mg BIDWM PO 01/22/25 18:00 01/26/25 09:20 325 MG Gabapentin 600 mg TID PO 01/22/25 22:00 01/26/25 06:18 600 MG Diagnostic Test (Pha) 1 strip ACHS 01/22/25 22:00 01/26/25 06:15 1 STRIP Insulin Human Regular ACHS SC 01/22/25 22:00 01/25/25 21:36 4 UNITS Dextrose 50 ml UD PRN IV 01/22/25 18:00 Acetaminophen/ Hydrocodone Bitart 1 tab Q4HP PRN PO 01/22/25 18:00 01/26/25 09:20 1 TAB Ondansetron HCl 4 mg Q4HP PRN IV 01/22/25 18:00 Acetaminophen 650 mg Q6HP PRN PO 01/22/25 18:00 01/25/25 13:48 650 MG Nystatin 1 applic BID TOP 01/23/25 22:00 01/26/25 09:21 1 APPLIC Ertapenem 1 gm/ Sodium Chloride 50 ml @ 100 mls/hr DAILY IV 01/27/25 10:00 UNV Laboratory Results Laboratory Tests 01/23/25 04:16 01/26/25 05:30 Urinalysis Test 01/22/25 07:30 Urine Color Light-yellow (Yellow) Urine Clarity Clear (Clear) Urine pH 5.5 (5.0-9.0) Urine Specific [place] 1.046 (1.001-1.035) Urine Protein Trace (Negative) H Urine Ketones Negative (Negative) Urine Blood 2+ /uL (Negative) H Urine Nitrite Negative (Negative) Urine Bilirubin Negative (Negative) Urine Urobilinogen Normal mg/dL (Negative) Urine Leukocyte Esterase Negative /uL (Negative) Urine RBC 13 /hpf (0 - 4) Urine Microscopic WBC 11 /HPF (0-5) H Urine Squamous Epithelial Cells Few /hpf (<5) Urine Bacteria None seen /hpf (None Seen) Urine Glucose Normal mg/dL (Normal) Microbiology Microbiology Date/Time Source Procedure Growth Status 01/23/25 15:10 Voided Urine Urine Culture - Preliminary Resulted 01/23/25 15:00 Sacrum Gram Stain - Final Resulted 01/23/25 15:00 Wound Culture - Preliminary Enterobacter aerogenes Proteus mirabilis Resulted 01/22/25 14:45 Blood Blood Culture - Final Complete Labs and/or images reviewed: Labs reviewed by me, Image(s) reviewed by me Assessment/Plan Assessment/Plan Septic shock secondary to infected stage 4 sacral decubitus ulcer Acute metabolic encephalopathy Acute dehydration Infected stage IV sacral decubitus ulcer and left leg wounds: Wound consult blood cultures, wound cultures growing Enterobacter and Proteus mirabilis, start Invanz 1 g IV daily , DC cefepime and vancomycin UTI: Blood cultures negative urine cultures negative Acute severe anemia hemoglobin 6.9: Transfuse 1 unit of RBC Hypertension Diabetes type 2 Severe dementia Patient is hospice revoked Time spent 50 minutes Advanced care planning time 20 minutes Patient is full code Spoke to daughter Marti [phone] was on hospice for COPD and CHF, daughter does not want her to be on hospice anymore and requesting intermediate facility placement for IV antibiotics physical therapy and wound care. Patient has midline in place Plan discussed with: Patient My Orders Orders - KRYSTAL COBOS MD Procedure Category Date Status Time Pt Request For Service PT 01/25/25 Logged 10:13 Ertapenem Sod Inj PHA 01/27/25 Logged (Invanz) 10:00 Invanz 1gm Ivpb X One PHA 01/26/25 Verified 10:15 Date of Service: Jan 26, 2025 Billing Provider: KRYSTAL COBOS MD Common Visit Codes: [id number] INP/OBS CARE(HIGH) KRYSTAL COBOS MD Jan 26, 2025 10:25
[2025-01-26 13:00] VITALS: BP 129/42; PULSE 80; RESP 18; TEMP 98.3; O2SAT 99
[2025-01-26] MEDS: ERTAPENEM SOD INJ 1 GM in SODIUM CHL 0.9% 50 ML IV ONE (15:43)
[2025-01-26 17:00] VITALS: BP 133/52; PULSE 90; RESP 18; TEMP 97.9; O2SAT 98
[2025-01-26 21:00] VITALS: BP 133/70; PULSE 96; RESP 17; TEMP 98.3; O2SAT 100
[2025-01-27 00:59] VITALS: BP 139/70; PULSE 79; RESP 18; TEMP 97.9; O2SAT 100
[2025-01-27 04:31] VITALS: BP 135/67; PULSE 82; RESP 18; TEMP 98.2; O2SAT 99
[2025-01-27 08:42] VITALS: BP 127/44; PULSE 88; RESP 12; TEMP 98.3; O2SAT 96
[2025-01-27] MEDS: ERTAPENEM SOD INJ 1 GM in SODIUM CHL 0.9% 50 ML IV SCH (09:22)
--- NOTE | 2025-01-27 09:39 | DVHDS2 ---
Discharge Summary Date of Admission Jan 22, 2025 at 17:51 Date of Discharge: Jan 27, 2025 Admitting Diagnosis Generalized weakness and altered mental status Wounds: Infected decubitus ulcer sacrum stage IV Labs/Diagnostic Data: Laboratory Results Test 01/27/25 06:22 01/26/25 05:30 01/25/25 04:06 01/23/25 04:16 POC Glucose 92 mg/dl (70-106) White Blood Count 7.1 10^3/uL (4.4-10.8) Red Blood Count 3.56 10^6/uL (4.0-5.20) Hemoglobin 9.6 g/dL (12.2-16.2) Hematocrit 30.4 % (36.0-46.0) Mean Corpuscular Volume 85.5 fL (80.0-100.0) Mean Corpuscular Hemoglobin 27.1 pg (28.0-32.0) Mean Corpuscular Hemoglobin Concent 31.6 g/dL (32.0-36.0) Red Cell Distribution Width 20.9 % (11.8-14.3) Platelet Count 270 10^3/uL (140-450) Mean Platelet Volume 7.3 fL (6.9-10.8) Neutrophils (%) (Auto) 67.7 % (37.0-80.0) Lymphocytes (%) (Auto) 16.7 % (10.0-50.0) Monocytes (%) (Auto) 11.3 % (0.0-12.0) Eosinophils (%) (Auto) 3.5 % (0.0-7.0) Basophils (%) (Auto) 0.8 % (0.0-2.0) Neutrophils # (Auto) 4.8 10 ^3/uL (1.6-8.6) Lymphocytes # (Auto) 1.2 10 ^3/uL (0.4-5.4) Monocytes # (Auto) 0.8 10 ^3/uL (0-1.3) Eosinophils # (Auto) 0.2 10 ^3/uL (0-0.8) Basophils # (Auto) 0.1 10 ^3/uL (0-0.2) Nucleated Red Blood Cells 0.1 % Creatinine 0.50 mg/dL (0.550-1.02) Glomerular Filtration Rate Calc 97 mL/min (>90) Vancomycin Level Trough 27.1 ug/mL (5-10) Stool Occult Blood Negative (Negative) Stool Occult Blood Sample #3 (Negative) Sodium Level 141 mmol/L (136-145) Potassium Level 4.4 mmol/L (3.5-5.1) Chloride Level 111 mmol/L (98-107) Carbon Dioxide Level 23 mmol/L (20-31) Anion Gap 7 (5-15) Blood Urea Nitrogen 15 mg/dL (9-23) BUN/Creatinine Ratio 19.7 (10.0-20.0) Serum Glucose 124 mg/dL (74-106) Calcium Level 7.8 mg/dL (8.7-10.4) Test 01/22/25 17:21 01/22/25 14:45 01/22/25 07:30 Lactic Acid Level 1.5 mmol/L (0.4-2.0) Iron Level 15 ug/dL (50-170) Total Iron Binding Capacity 110 ug/dL (250-425) Percent Iron Saturation 13.6 % (15-50) Troponin I High Sensitivity 18 ng/L (</=34) Platelet Estimate Increased Hypochromasia (manual) Moderate Anisocytosis (manual) Moderate Emmett Cells Few B-Type Natriuretic Peptide 134.96 pg/mL (0-100) Urine Color Light-yellow (Yellow) Urine Clarity Clear (Clear) Urine pH 5.5 (5.0-9.0) Urine Specific [place] 1.046 (1.001-1.035) Urine Protein Trace (Negative) Urine Ketones Negative (Negative) Urine Blood 2+ /uL (Negative) Urine Nitrite Negative (Negative) Urine Bilirubin Negative (Negative) Urine Urobilinogen Normal mg/dL (Negative) Urine Leukocyte Esterase Negative /uL (Negative) Urine RBC 13 /hpf (0 - 4) Urine Microscopic WBC 11 /HPF (0-5) Urine Squamous Epithelial Cells Few /hpf (<5) Urine Bacteria None seen /hpf (None Seen) Urine Glucose Normal mg/dL (Normal) Other Laboratory Tests 01/26/25 05:30 01/23/25 04:16 Brief Hx & Hospital Course: 74-year-old female with a history of hypertension type 2 diabetes CVA dementia on hospice burden by family for generalized weakness and altered mental status. Found to have septic shock secondary to stage IV infected decubitus ulcers. Wound cultures grew Enterobacter and Proteus mirabilis started on Invanz 1 g IV daily. Previous antibiotics cefepime and vancomycin discontinued patient also had urinary tract infection blood cultures negative urine cultures negative patient had severe anemia hemoglobin 6.9 improved to 9.2 after 3 units RBC transfusion. Discussed with the daughter about the poor prognosis. She advised that the patient is hospice revoked and requesting SNF placement for IV antibiotics for infected stage IV decubitus ulcers. Patient being discharged to SNF. Prognosis poor Consults/Reason for consult None Operations or Procedures RBC transfusion Condition at Discharge: Fair Final Diagnosis/Problems List Septic shock secondary to infected stage 4 sacral decubitus ulcer Acute metabolic encephalopathy Acute dehydration Infected stage IV sacral decubitus ulcer and left leg wounds: Wound consult blood cultures, wound cultures growing Enterobacter and Proteus mirabilis, start Invanz 1 g IV daily , DC cefepime and vancomycin UTI: Blood cultures negative urine cultures negative Acute severe anemia hemoglobin 6.9: Improved to 9.6 after 3 units RBC transfusion Hypertension Diabetes type 2 Severe dementia Patient is hospice revoked Discharge Disposition: Snf Facility Discharge Instruct/Medications Diet: Cardiac 2g Na,low cholest Activity: Light activity Follow Up/Referral: Follow up with the long-term Medications: Invanz 1 g IV daily for 30 days for infected decubitus ulcers Scheduled Gabapentin (Gabapentin), 600 MG PO QID, (Reported) Hydrocodone-Acetaminophen (Hydrocodone/Acetaminophen 10-325 mg), 1 TAB PO Q4HR, (Reported) Hydromorphone Hcl (Dilaudid), 2 MG PO BID, (Reported) Loratadine (Claritin), 5 MG PO DAILY, (Reported) Lorazepam (Lorazepam), 0.5 MG PO DAILY, (Reported) Trazodone Hcl (Trazodone Hcl), 50 MG PO DAILY, (Reported) 39 (Time taken for discharge summary 39 minutes) Discharge Statement: "Patient was advised to return to the ER or call 911 if any headaches, dizziness, shortness of breath, chest pain, abdominal pain, bleeding, fevers, or worsening of medical condition. Patient was counseled about treatment plan, medications, possible side effects, patientverbalized understanding. All questions were answered to the best of my ability. This discharge took greater then 30 minutes in planning, reviewing documentation, counseling the patient, and discussing with other team members." ASSESSMENT ASSESSMENT Hospital Course Improved marginally Assessment Septic shock secondary to infected stage 4 sacral decubitus ulcer Acute metabolic encephalopathy Acute dehydration Infected stage IV sacral decubitus ulcer and left leg wounds: Wound consult blood cultures, wound cultures growing Enterobacter and Proteus mirabilis, start Invanz 1 g IV daily , DC cefepime and vancomycin UTI: Blood cultures negative urine cultures negative Acute severe anemia hemoglobin 6.9: Improved to 9.6 after 3 units RBC transfusion Hypertension Diabetes type 2 Severe dementia Patient is hospice revoked Date of Service: Jan 27, 2025 Billing Provider: KRYSTAL COBOS MD Common Visit Codes: [id number] DISCH DAY >30min KRYSTAL COBOS MD Jan 27, 2025 09:38
[2025-01-27 12:46] VITALS: BP 153/54; PULSE 84; RESP 18; TEMP 98; O2SAT 97
[2025-01-27 16:59] VITALS: BP 146/63; PULSE 81; RESP 18; TEMP 98.1; O2SAT 99
== END 2025-01-27 17:10 | DRG 871 ==
LOC: EDBD 14:16 → ER 14:16 → OVERFLOW 17:51 → EAST 01-23 13:40
PROVIDERS: ADMIT Family Medicine; ATTEND Family Medicine
PROC: 30233N1 Transfusion of Nonautologous Red Blood Cells into Peripheral Vein, Percutaneous Approach (ICD-10-PCS; principal; 2025-01-22)
PROC: 05HD33Z Insertion of Infusion Device into Right Cephalic Vein, Percutaneous Approach (ICD-10-PCS; 2025-01-23)
PROC: B54MZZA Ultrasonography of Right Upper Extremity Veins, Guidance (ICD-10-PCS; 2025-01-23)
DX: A41.9 Sepsis, unspecified organism (principal); G93.41 Metabolic encephalopathy; L89.154 Pressure ulcer of sacral region, stage 4; R65.21 Severe sepsis with septic shock; N39.0 Urinary tract infection, site not specified; E11.9 Type 2 diabetes mellitus without complications; D64.9 Anemia, unspecified; E86.0 Dehydration; F03.C0 Unspecified dementia, severe, without behavioral disturbance, psychotic disturbance, mood disturbance, and anxiety; I10 Essential (primary) hypertension; L08.9 Local infection of the skin and subcutaneous tissue, unspecified; Z51.5 Encounter for palliative care; Z88.5 Allergy status to narcotic agent; Z74.01 Bed confinement status
CPT/HCPCS: 36415; 71045; 74177; 80048; 80202; 81001; 82270; 82565; 82962; 83540; 83550; 83605; 83880; 84484; 85025; 86850; 86900; 86901; 86920; 87040; 87077; 87081; 87086; 87186; 96365; 97163; 99291; G0378; J1335; J1815; J2405

== ENCOUNTER 2025-05-22 23:20 | Emergency (ER) | payer OTHER, MEDICARE ==
[~2025-05-22] VITALS: Ht 165.1 cm; Wt 81.0 kg
[~2025-05-22 23:20] MED LIST: GABA-339 PO; HYDR-4072 PO; HYDR2TAB58 PO; LORA-1120 PO; LORA5SYP23 PO; TRAZ-227 PO
--- NOTE | 2025-05-22 23:28 | ECG ---
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
--- NOTE | 2025-05-22 23:39 | ED.PDOC ---
History of Present Illness HPI Comments 74-year-old female who came to ER via EMS for altered level of consciousness. Patient is on hospice care. She is bed-bound, has a history of diabetes, CHF, COPD, status post right AKA. Was last seen normal by family members at 3:00 p.m.. 1 hour prior to arrival, patient was seen to be unresponsive to verbal stimuli by family members so paramedics were called. Noted pinpoint pupils so 1 mg Narcan was given. Noted multiple bedsores. Blood sugar on scene was 409, hypotensive and patient is currently A&O x1. EMS presents patient's POLST form, she is DNR/DNI comfort measures only. On arrival her daughter states she has been tired all day, with decreasing mental status throughout the day. REVIEW OF SYSTEMS: Altered level of consciousness EXAM: General: Lethargic. Lying in exam bed with eyes open. Some spontaneous eye movement. She is not speaking or following commands. Skin: Skin in warm, dry and intact. Appropriate color for ethnicity. HEENT: The head is normocephalic and atraumatic. Conjunctivae are clear without exudates or hemorrhage. Sclera is non-icteric. EOM are intact. No signs of nystagmus. Eyelids are normal in appearance without swelling or lesions. Oral mucosa is pink and moist Neck: The neck is supple with normal range of motion. No JVD. Cardiac: Heart rate and rhythm are normal. No murmurs, gallops, or rubs are auscultated. Respiratory: No signs of respiratory distress. Lung sounds are clear in all lobes bilaterally without rales, rhonchi, or wheezes. Abdominal: Abdomen is soft, non-tender without distention. Bowel sounds are present and normoactive in all four quadrants. Extremities: Upper and lower extremities are atraumatic in appearance without deformity or edema. Neurological: GCS 4 Psychiatric: Appropriate mood and affect. Good judgement and insight Chief Complaint: ALOC Time Seen by MD: 23:38 Reviewed Notes: Endoscopy Technician Notes Allergies: Coded Allergies: Morphine (Verified Allergy, Unknown, 01/22/25) Home Meds Reported Medications Hydrocodone-Acetaminophen (Hydrocodone/Acetaminophen 10-325 mg) 1 Tab Tab, 1 TAB PO Q4HR, TAB 01/23/25 Hydromorphone Hcl (Dilaudid) 2 Mg Tab, 2 MG PO BID, TAB 01/23/25 Trazodone Hcl (Trazodone Hcl) 50 Mg Tab, 50 MG PO DAILY, MG 01/23/25 Lorazepam (Lorazepam) 0.5 Mg Tab, 0.5 MG PO DAILY, TAB 01/23/25 Gabapentin (Gabapentin) 600 Mg Tab, 600 MG PO QID for 30 Days, MG 01/23/25 Loratadine (Claritin) 5 Mg/5 Ml Syp, 5 MG PO DAILY, SYP 01/23/25 Information Source: Emergency Med Personnel Mode of Arrival: EMS Past Medical History PAST MEDICAL HISTORY: CHF, COPD, DM Surgical History: AKA (Right), Denies all surgeries 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 Indication: Hypotension, Volume resuscitation, Inability to obtain IV, Suspected infection Room prepared for procedure: Yes [place] Tender performed hand hygien: Yes Maximal sterile barrier precau: Mask/Eye shield, Sterile gown, Cap, Sterlie gloves, Large sterlie drape Skin Preparation: Providine iodine Skin preparation completely dr: Yes Insertion site: Right, Femoral Central line catheter type: Tunneled- not dialysis Number of lumens: 3 Central line exchanged over a: Yes Antiseptic ointment applied to: Yes Post Assessment: Chest X-Ray Informed consent obtained: Yes Risks/benefits/alt described: Yes EKG EKG : Pulse Rate (adult): 95 Cardiac Rhythm: NSR Differential Dx Considerations may include: Anemia, electrolyte imbalance, sepsis, hyperglycemia, CHF, COPD, decubitus ulcers, bed-bound X-Ray, Labs, Meds, VS Vital Signs Date Time Temp Pulse Resp B/P (MAP) Pulse Ox O2 Delivery O2 Flow Rate FiO2 05/23/25 03:55 61 Facial BiPAP Mask 50 05/23/25 02:11 75 05/23/25 02:10 71 97/81 Facial BiPAP Mask 50 05/23/25 00:09 99.3 52 20 69/26 (40) 84 99.3 05/22/25 23:49 84 86/63 Facial BiPAP Mask 50 05/22/25 23:46 97.8 83 8 86/63 (71) 88 97.8 05/22/25 23:39 95 05/22/25 23:22 95 05/22/25 23:20 98.3 86 8 79/60 98.3 Lab Test 05/23/25 03:30 05/22/25 23:45 05/22/25 23:43 Range/Units Sodium Level 128 L 124 L 136-145 mmol/L Potassium Level 5.0 # 7.5 *H 3.5-5.1 mmol/L Chloride Level 101 96 L 98-107 mmol/L Carbon Dioxide Level 11 L < 10 *L 20-31 mmol/L Anion Gap 16 H 18.47302 H 5-15 Blood Urea Nitrogen 53 #H 67 H 9-23 mg/dL Creatinine 2.18 H 2.35 H 0.550-1.02 mg/dL Glomerular Filtration Rate Calc 23 21 >90 mL/min BUN/Creatinine Ratio 24.3 H 28.5 H 10.0-20.0 Serum Glucose 377 H 357 H 74-106 mg/dL Lactic Acid Level 6.2 *H 0.4-2.0 mmol/L Calcium Level 7.5 L 7.7 L 8.7-10.4 mg/dL Blood Gas Specimen Type Arterial Blood Gas Sample Site Left radial Blood Gas Patient Temperature 37.0 Arterial Blood Date Drawn [id number] Arterial Blood pH 7.187 *L 7.350-7.450 Arterial Blood Partial Pressure CO2 22.7 L 32.0-45.0 mmHg Arterial Blood Partial Pressure O2 501.6 *H 83.0-108.0 mmHg Arterial Blood HCO3 8.4 L 21.0-28.0 mmol/L Arterial Blood Oxygen Saturation 99.7 H 94.0-98.0 % Arterial Blood Base Excess -18.2 L -2.0-3.0 mmol/L Arterial Blood Oxyhemoglobin 98.3 H 94.0-98.0 % Arterial Blood Carboxyhemoglobin 0.8 0.5-1.5 % Arterial Blood Methemoglobin 0.6 0.0-1.5 % Arterial Blood Deoxyhemoglobin 0.3 0.0-5.0 % David Test Yes Blood Gas Total Hemoglobin 7.40 L 12.0-16.0 g/dL Blood Gas Set Respiration Rate 18.0 Blood Gas Modality Mask - bipap Blood Gas Spontaneous Rate 24 FiO2 % 100.0 Blood Gas EPAP 6 Blood Gas IPAP 12 Blood Gas Critical Value Read Back Yes Blood Gas Notified Whom jil Benitez md Blood Gas Notified Time [id number] Blood Gas Notified By White Blood Count 19.5 H 4.4-10.8 10^3/uL Red Blood Count 3.54 L 4.0-5.20 10^6/uL Hemoglobin 9.0 L 12.2-16.2 g/dL Hematocrit 32.1 L 36.0-46.0 % Mean Corpuscular Volume 90.5 80.0-100.0 fL Mean Corpuscular Hemoglobin 25.3 L 28.0-32.0 pg Mean Corpuscular Hemoglobin Concent 27.9 L 32.0-36.0 g/dL Red Cell Distribution Width 24.9 H 11.8-14.3 % Platelet Count 294 140-450 10^3/uL Mean Platelet Volume 8.0 6.9-10.8 fL Neutrophils (%) (Auto) 89.4 H 37.0-80.0 % Lymphocytes (%) (Auto) 2.7 L 10.0-50.0 % Monocytes (%) (Auto) 6.2 0.0-12.0 % Eosinophils (%) (Auto) 1.2 0.0-7.0 % Basophils (%) (Auto) 0.5 0.0-2.0 % Neutrophils # (Auto) 17.4 H 1.6-8.6 10 ^3/uL Lymphocytes # (Auto) 0.5 0.4-5.4 10 ^3/uL Monocytes # (Auto) 1.2 0-1.3 10 ^3/uL Eosinophils # (Auto) 0.2 0-0.8 10 ^3/uL Basophils # (Auto) 0.1 0-0.2 10 ^3/uL Nucleated Red Blood Cells 0.2 % Troponin I High Sensitivity 20 </=34 ng/L Current Medications Medications (Trade) Dose Ordered Sig/Xu Route Start Time Stop Time Status Last Admin Sodium Chloride 1,000 ml @ 1,000 mls/hr Q1H ONCE IV 05/22/25 23:45 05/23/25 00:44 DC 05/22/25 23:45 Sodium Chloride 1,000 ml @ 1,000 mls/hr Q1H ONCE IV 05/23/25 00:00 05/23/25 00:59 DC 05/23/25 00:00 Sodium Bicarbonate 50 ml ONCE ONCE IV 05/23/25 00:00 05/23/25 00:01 DC 05/23/25 00:05 Albuterol (Ventolin Medneb) 20 mg ONCE ONCE NEB 05/23/25 02:00 05/23/25 02:01 DC 05/23/25 02:09 Sodium Bicarbonate 50 ml ONCE ONCE IV 05/23/25 02:00 05/23/25 02:01 DC 05/23/25 03:49 PROCEDURE(s): CXR1 - CHEST XRAY 1 VIEW REASON: sob ORDER NUMBER(s): [id number], ACCESSION NUMBER(s): [id number] CLINICAL HISTORY: Shortness of breath. TECHNIQUE: Single frontal view of the chest was obtained. COMPARISON: XR CHEST 1 VIEW on DOS: 03/06/25. FINDINGS: DEVICES/LINES/TUBES: Multiple telemetry leads/wires project over the chest. LUNGS: Clear. PLEURA: No pneumothorax or pleural effusion. MEDIASTINUM/OTHER: Normal heart size and mediastinal contours. Aortic atherosclerosis Trachea is midline. BONES: No acute osseous abnormality. UPPER ABDOMEN: Unremarkable. IMPRESSION: No acute cardiopulmonary process. Time of 1ST Reevaluation: 23:33 Reevaluation 1ST: Unchanged Time of 2ND Reevaluation: 04:06 (General: Patient is unresponsiveHEENT: Pupils fixed, dilated, nonreactive. There is no corneal reflex. Cardiac: No heart sounds auscultated, no pulses palpated Abdomen: Soft, nondistendedRespiratory: No spontaneous respirations, no breath sounds auscultated Neuro: GCS 3, patient is unresponsive to painful stimulus,) Patient Education/Counseling: Need For Follow Up Family Education/Counseling: No Family Present SEPSIS Sepsis Screen Physician Orders Chest Xray 1 View (05/22/25 23:39) Abg W/ Co-Ox (05/22/25 23:46) Blood Culture (05/22/25 23:50) BIPAP (05/22/25 23:56) Dextrose 50% Syringe (05/23/25 02:00) Dextrose 50% Syringe (05/23/25 02:00) Glucose Blood (Accu-Chek Comfort Curve T (05/23/25 21:15) Vital Signs Date Time Temp Pulse Resp B/P (MAP) Pulse Ox O2 Delivery O2 Flow Rate FiO2 05/23/25 03:55 61 Facial BiPAP Mask 50 05/23/25 02:11 75 05/23/25 02:10 71 97/81 Facial BiPAP Mask 50 05/23/25 00:09 99.3 52 20 69/26 (40) 84 99.3 05/22/25 23:49 84 86/63 Facial BiPAP Mask 50 05/22/25 23:46 97.8 83 8 86/63 (71) 88 97.8 05/22/25 23:39 95 05/22/25 23:22 95 05/22/25 23:20 98.3 86 8 79/60 98.3 Laboratory Tests Test 05/22/25 23:43 05/23/25 03:30 White Blood Count 19.5 10^3/uL (4.4-10.8) H Lactic Acid Level 6.2 mmol/L (0.4-2.0) *H Medications Medications Dose Ordered Sig/Xu Route Start Time Stop Time Status Last Admin Dose Admin Albuterol 20 mg ONCE ONCE NEB 05/23/25 02:00 05/23/25 02:01 DC 05/23/25 02:09 Sodium Bicarbonate 50 ml ONCE ONCE IV 05/23/25 00:00 05/23/25 00:01 DC 05/23/25 00:05 Sodium Bicarbonate 50 ml ONCE ONCE IV 05/23/25 02:00 05/23/25 02:01 DC 05/23/25 03:49 Sodium Chloride 1,000 ml @ 1,000 mls/hr Q1H ONCE IV 05/22/25 23:45 05/23/25 00:44 DC 05/22/25 23:45 Sodium Chloride 1,000 ml @ 1,000 mls/hr Q1H ONCE IV 05/23/25 00:00 05/23/25 00:59 DC 05/23/25 00:00 Departure 1 Departure Time of Disposition: 00:51 Impression: Primary Impression: Sepsis Additional Impression: Altered mental status Disposition: 09 ADMITTED INPATIENT Condition: Stable Comments 74 F presented to the ED with altered mental status. She was placed on Bipap for oxygenation as she was taking spontaneous respirations per daughter's request. Daughter requested treatment of patient's illness up to intubation. During the course of patient's treatment her respiratory status declined. Shortly thereafte r her heart rate slowed to asystole on the monitor. Patient pronounced at 0406 am. Critical Care Note Critical Care Time?: Yes (45 min-critical care time only) Stability Stability form required: No Heart Score Heart Score: Heart Score Response (Comments) Value History N/A 0 EKG N/A 0 Age N/A 0 Risk Factors N/A 0 Troponin N/A 0 Total 0 I personally scribed for GERALDINE BENITEZ MD ([email or web address]) on 05/22/25 at 23:39. Electronically submitted by Mack Lai ([email or web address]). I personally scribed for GERALDINE BENITEZ MD (DVMINCH) on 05/23/25 at 01:10. Electronically submitted by Mack Lai (LORIRRILLO). I personally scribed for GERALDINE BENITEZ MD ([email or web address]) on 05/23/25 at 01:45. Electronically submitted by Mack Lai (RCARRILLO). I personally scribed for GERALDINE BENITEZ MD (DVMINCH) on 05/23/25 at 01:52. Electronically submitted by Mack Lai (RCARRILLO). I personally scribed for GERALDINE BENITEZ MD (DVMINCH) on 05/23/25 at 03:28. Electronically submitted by Mack Lai (RCARRILLO). I personally scribed for GERALDINE BENITEZ MD (DVMINCH) on 05/23/25 at 04:54. Electronically submitted by Mack Lai ([email or web address]). GERALDINE BENITEZ MD May 22, 2025 23:39
[2025-05-22 23:45] VITALS: O2SAT 100
[2025-05-22] MEDS: SODIUM CHLORIDE 0.9% 1,000 ML IV ONE (23:45)
[2025-05-22 23:55] LABS: Hematocrit 32.1 % (36.0-46.0); Hemoglobin 9.0 g/dL (12.2-16.2); Mean Corpuscular Hemoglobin 25.3 pg (28.0-32.0); Mean Corpuscular Volume 90.5 fL (80.0-100.0); Nucleated Red Blood Cells % 0.2 %
[2025-05-22 23:56] LABS: Base Excess -18.2 mmol/L (-2.0-3.0)
[2025-05-23] MEDS: SODIUM CHLORIDE 0.9% 1,000 ML IV ONE
[2025-05-23] MEDS: SODIUM BICARB 8.4% 50Meq/50ml SYR INJ IV ONE ×2 (00:05→03:49)
[2025-05-23 00:09] VITALS: RESP 20; TEMP 99.3; O2SAT 84
--- NOTE | 2025-05-23 00:46 | DVH ---
CLINICAL HISTORY: Shortness of breath. TECHNIQUE: Single frontal view of the chest was obtained. COMPARISON: XR CHEST 1 VIEW on DOS: 03/06/25. FINDINGS: DEVICES/LINES/TUBES: Multiple telemetry leads/wires project over the chest. LUNGS: Clear. PLEURA: No pneumothorax or pleural effusion. MEDIASTINUM/OTHER: Normal heart size and mediastinal contours. Aortic atherosclerosis Trachea is midline. BONES: No acute osseous abnormality. UPPER ABDOMEN: Unremarkable. IMPRESSION: No acute cardiopulmonary process.
[2025-05-23 00:56] LABS: Anion Gap 18.00001 (5-15); BUN/Creatinine Ratio 28.5 (10.0-20.0)
[2025-05-23 01:01] LABS: Blood Urea Nitrogen 67 mg/dL (9-23); Calcium 7.7 mg/dL (8.7-10.4); Chloride 96 mmol/L (98-107); Glucose 357 mg/dL (74-106); Sodium 124 mmol/L (136-145)
[2025-05-23 01:03] LABS: Carbon Dioxide < 10 mmol/L (20-31); Potassium 7.5 mmol/L (3.5-5.1)
[2025-05-23] MEDS: ACCU-CHEK COMFORT CURVE STRIP VI STA (01:51)
[2025-05-23] MEDS: CALCIUM GLUC 1,000mg/50ml-NS 50 ML IV ONE (02:00)
[2025-05-23] MEDS ORDERED: DEXTROSE (50%) 50ML SYRG IV PRN ×2 (02:00)
[2025-05-23] MEDS: InsuLIN REG 1unit/0.01ml Soln (100units/ml) IV ONE (02:00)
[2025-05-23] MEDS: ALBUTEROL SULF 2.5 MG/0.5ML(0.5%) NEB SOLN NEB ONE (02:09)
[2025-05-23 02:10] VITALS: BP 97/81
[2025-05-23 03:48] LABS: Chloride 101 mmol/L (98-107); Potassium 5.0 mmol/L (3.5-5.1)
[2025-05-23 03:49] LABS: Anion Gap 16 (5-15)
[2025-05-23 03:54] LABS: BUN/Creatinine Ratio 24.3 (10.0-20.0)
[2025-05-23 03:55] VITALS: PULSE 61
[2025-05-23] MEDS: VANCOMYCIN 1GM/250ML KIT 250 ML IV ONE (03:59)
[2025-05-23 04:00] LABS: Blood Urea Nitrogen 53 mg/dL (9-23); Calcium 7.5 mg/dL (8.7-10.4); Carbon Dioxide 11 mmol/L (20-31); Glucose 377 mg/dL (74-106); Sodium 128 mmol/L (136-145)
[2025-05-23 04:04] LABS: Lactic Acid w/Reflex 6.2 mmol/L (0.4-2.0)
[2025-05-23] MEDS ORDERED: ACCU-CHEK COMFORT CURVE STRIP VI ONE (21:15)
== END 2025-05-23 04:06 ==
LOC: ER 23:20 → EDBD 23:20 → ER 05-23 04:06
DX: A41.9 Sepsis, unspecified organism (principal); I50.9 Heart failure, unspecified; E11.9 Type 2 diabetes mellitus without complications; J44.9 Chronic obstructive pulmonary disease, unspecified; Z88.5 Allergy status to narcotic agent; Z79.899 Other long term (current) drug therapy
CPT/HCPCS: 36415; 36558; 36600; 71045; 80048; 82805; 83605; 84484; 85025; 87040; 93005; 94640; 96361; 96374; 96376; 99291; J7030